=== PATIENT | male | born 1940 | race Caucasian/White ===

== ENCOUNTER 2017-04-23 08:51 | Day surgery (SDC) | payer MEDICARE ==
[2017-04-23 09:07] VITALS: BP 129/64; TEMP 98.4
[2017-04-23] MEDS ORDERED: OCTAGAM 10% 40 GM in Admixture Fee 1 EACH IVPB SCH (09:15)
[2017-04-23] MEDS ORDERED: Acetaminophen 500 MG TAB PO SCH (09:15)
[2017-04-23] MEDS ORDERED: PRIVIGEN IVPB SCH (09:15)
[2017-04-23] MEDS ORDERED: diphenhydrAMINE 50 MG/ML VIAL IVP SCH (09:15)
[2017-04-23] MEDS ORDERED: ADMIXTURE FEE IVPB SCH (09:15)
[2017-04-23] MEDS ORDERED: Sodium Chloride 0.9% 500 ML IVPB SCH (09:15)
--- OUTSIDE RECORDS SUMMARY | 2017-04-25 16:15 | XMS | Clinical Summary ---
:1940 Author Organization [facility] Address [address] [place] [address] Phone Care Team Providers Name Role Phone , Primary Care Provider Unavailable Allergies Not on File Current Medications Not on file Active Problems Not on file Social History Tobacco Use Types Packs/Day Years Used Date Never Assessed Sex Assigned at Date Recorded Not on file Last Filed Vital Signs Not on file Plan of Treatment Not on file Results Not on filefrom Last 3 Months
== END 2017-04-23 13:02 | disposition home or self-care (01) ==
LOC: ONC/OP 08:51
PROVIDERS: ATTEND Psychiatry & Neurology Neurology
DX: G61.81 Chronic inflammatory demyelinating polyneuritis (principal); I10 Essential (primary) hypertension; Z79.1 Long term (current) use of non-steroidal anti-inflammatories (NSAID); Z79.82 Long term (current) use of aspirin; Z79.899 Other long term (current) drug therapy; Z96.651 Presence of right artificial knee joint; Z98.890 Other specified postprocedural states; Z86.69 Personal history of other diseases of the nervous system and sense organs; Z85.038 Personal history of other malignant neoplasm of large intestine
CPT/HCPCS: 96365; 96366; 96375; J1200; J1459; J1568

== ENCOUNTER 2017-05-29 08:54 | Day surgery (SDC) | payer MEDICARE ==
[2017-05-29] MEDS ORDERED: Sodium Chloride 0.9% 500 ML IVPB SCH (09:15)
[2017-05-29] MEDS ORDERED: Acetaminophen 500 MG TAB PO SCH (09:15)
[2017-05-29] MEDS ORDERED: OCTAGAM 10% 40 GM in Admixture Fee 1 EACH IVPB SCH (09:15)
[2017-05-29 09:24] VITALS: TEMP 97.9
[2017-05-29] MEDS ORDERED: diphenhydrAMINE 50 MG/ML VIAL IVP SCH (09:30)
[2017-05-29 13:22] VITALS: BP 136/72
== END 2017-05-29 13:22 | disposition home or self-care (01) ==
LOC: ONC/OP 08:54
PROVIDERS: ATTEND Psychiatry & Neurology Neurology
DX: G61.81 Chronic inflammatory demyelinating polyneuritis (principal); G30.9 Alzheimer's disease, unspecified
CPT/HCPCS: 96361; 96365; 96366; 96375; J1200; J1568

== ENCOUNTER 2017-06-27 08:47 | Day surgery (SDC) | payer MEDICARE ==
[2017-06-27] MEDS ORDERED: Sodium Chloride 0.9% 500 ML IVPB SCH (09:15)
[2017-06-27 09:17] VITALS: BP 142/72; TEMP 97.9
[2017-06-27] MEDS ORDERED: Sodium Chloride 0.9% 20 ML ONE (09:26)
[2017-06-27] MEDS ORDERED: ADMIXTURE FEE CHEMO IVPB SCH (09:30)
[2017-06-27] MEDS ORDERED: diphenhydrAMINE 50 MG/ML VIAL IVP SCH (09:30)
[2017-06-27] MEDS ORDERED: OCTAGAM IVPB SCH (09:30)
[2017-06-27] MEDS ORDERED: Acetaminophen 500 MG TAB PO SCH (09:30)
== END 2017-06-27 13:43 | disposition home or self-care (01) ==
LOC: ONC/OP 08:47
PROVIDERS: ATTEND Psychiatry & Neurology Neurology
DX: G61.81 Chronic inflammatory demyelinating polyneuritis (principal); G30.9 Alzheimer's disease, unspecified; F02.80 Dementia in other diseases classified elsewhere, unspecified severity, without behavioral disturbance, psychotic disturbance, mood disturbance, and anxiety
CPT/HCPCS: 96361; 96365; 96366; 96375; A4216; J1200; J1568

== ENCOUNTER 2017-07-26 08:58 | Day surgery (SDC) | payer MEDICARE ==
[2017-07-26] MEDS ORDERED: Acetaminophen 500 MG TAB PO SCH (09:15)
[2017-07-26] MEDS ORDERED: OCTAGAM 10% 40 GM in Admixture Fee 1 EACH IVPB SCH (09:15)
[2017-07-26] MEDS ORDERED: diphenhydrAMINE 50 MG/ML VIAL IVP SCH (09:15)
[2017-07-26 11:50] VITALS: BP 120/71; TEMP 98.6
== END 2017-07-26 14:49 | disposition home or self-care (01) ==
LOC: ONC/OP 08:58
PROVIDERS: ATTEND Psychiatry & Neurology Neurology
DX: G61.81 Chronic inflammatory demyelinating polyneuritis (principal); Z79.1 Long term (current) use of non-steroidal anti-inflammatories (NSAID); Z79.82 Long term (current) use of aspirin; Z79.899 Other long term (current) drug therapy; Z98.890 Other specified postprocedural states; Z85.038 Personal history of other malignant neoplasm of large intestine; Z86.69 Personal history of other diseases of the nervous system and sense organs
CPT/HCPCS: 96365; 96366; 96375; J1200; J1568

== ENCOUNTER 2017-08-23 08:53 | Day surgery (SDC) | payer MEDICARE ==
[2017-08-23] MEDS ORDERED: OCTAGAM 10% 40 GM in Admixture Fee 1 EACH IVPB SCH (09:15)
[2017-08-23] MEDS ORDERED: diphenhydrAMINE 50 MG/ML VIAL IVP SCH (09:15)
[2017-08-23] MEDS ORDERED: Acetaminophen 500 MG TAB PO SCH (09:15)
[2017-08-23] MEDS ORDERED: Sodium Chloride 0.9% 500 ML IVPB SCH (09:15)
[2017-08-23] MEDS ORDERED: Sodium Chloride 0.9% 30 ML ONE (09:28)
[2017-08-23 10:23] VITALS: BP 153/75; TEMP 98.3
== END 2017-08-23 13:09 | disposition home or self-care (01) ==
LOC: ONC/OP 08:53
PROVIDERS: ATTEND Psychiatry & Neurology Neurology
DX: G61.81 Chronic inflammatory demyelinating polyneuritis (principal); Z79.1 Long term (current) use of non-steroidal anti-inflammatories (NSAID); Z79.82 Long term (current) use of aspirin; Z79.899 Other long term (current) drug therapy; Z98.890 Other specified postprocedural states; Z85.038 Personal history of other malignant neoplasm of large intestine; Z86.69 Personal history of other diseases of the nervous system and sense organs
CPT/HCPCS: 96365; 96366; 96375; A4216; J1200; J1568

== ENCOUNTER 2017-09-20 08:52 | Day surgery (SDC) | payer MEDICARE ==
[2017-09-20] MEDS ORDERED: Sodium Chloride 0.9% 30 ML ONE (09:11)
[2017-09-20] MEDS ORDERED: Acetaminophen 500 MG TAB PO SCH (09:15)
[2017-09-20] MEDS ORDERED: diphenhydrAMINE 50 MG/ML VIAL IVP SCH (09:15)
[2017-09-20] MEDS ORDERED: OCTAGAM 10% 40 GM in Admixture Fee 1 EACH IVPB SCH (09:15)
[2017-09-20] MEDS ORDERED: Sodium Chloride 0.9% 500 ML IVPB SCH (09:15)
[2017-09-20 12:05] VITALS: BP 136/63; TEMP 98.1
== END 2017-09-20 12:08 | disposition home or self-care (01) ==
LOC: ONC/OP 08:52
PROVIDERS: ATTEND Psychiatry & Neurology Neurology
DX: G61.81 Chronic inflammatory demyelinating polyneuritis (principal); Z79.1 Long term (current) use of non-steroidal anti-inflammatories (NSAID); Z79.82 Long term (current) use of aspirin; Z79.899 Other long term (current) drug therapy
CPT/HCPCS: 96365; 96366; 96375; A4216; J1200; J1568

== ENCOUNTER 2017-10-25 08:36 | Day surgery (SDC) | payer MEDICARE ==
[2017-10-25] MEDS ORDERED: diphenhydrAMINE 50 MG/ML VIAL IVP SCH (09:00)
[2017-10-25] MEDS ORDERED: Acetaminophen 500 MG TAB PO SCH (09:00)
[2017-10-25] MEDS ORDERED: Sodium Chloride 0.9% 500 ML IVPB SCH (09:00)
[2017-10-25] MEDS ORDERED: OCTAGAM 10% 40 GM in Admixture Fee 1 EACH IVPB SCH (09:15)
[2017-10-25] MEDS ORDERED: Sodium Chloride 0.9% 30 ML ONE (10:56)
[2017-10-25 12:36] VITALS: BP 132/59; TEMP 98.1
== END 2017-10-25 16:40 | disposition home or self-care (01) ==
LOC: ONC/OP 08:36
PROVIDERS: ATTEND Psychiatry & Neurology Neurology
DX: G61.81 Chronic inflammatory demyelinating polyneuritis (principal); Z79.82 Long term (current) use of aspirin; Z79.899 Other long term (current) drug therapy
CPT/HCPCS: 96365; 96366; 96375; A4216; J1200; J1568

== ENCOUNTER 2017-11-22 08:43 | Day surgery (SDC) | payer MEDICARE ==
[2017-11-22] MEDS ORDERED: Acetaminophen 500 MG TAB PO SCH (09:00)
[2017-11-22] MEDS ORDERED: Sodium Chloride 0.9% 500 ML IVPB SCH (09:00)
[2017-11-22] MEDS ORDERED: diphenhydrAMINE 50 MG/ML VIAL IVP SCH (09:00)
[2017-11-22 09:15] VITALS: BP 120/69; TEMP 98.4
[2017-11-22] MEDS ORDERED: Sodium Chloride 0.9% 30 ML ONE (09:15)
[2017-11-22] MEDS ORDERED: OCTAGAM 10% 40 GM in Admixture Fee 1 EACH IVPB SCH (09:30)
== END 2017-11-22 17:14 | disposition home or self-care (01) ==
LOC: ONC/OP 08:43
PROVIDERS: ATTEND Psychiatry & Neurology Neurology
DX: G61.81 Chronic inflammatory demyelinating polyneuritis (principal)
CPT/HCPCS: 96365; 96366; 96375; A4216; J1200; J1568

== ENCOUNTER 2017-12-20 08:42 | Day surgery (SDC) | payer MEDICARE ==
[2017-12-20] MEDS ORDERED: diphenhydrAMINE 50 MG/ML VIAL IVP SCH (09:15)
[2017-12-20] MEDS ORDERED: OCTAGAM IVPB SCH (09:15)
[2017-12-20] MEDS ORDERED: Acetaminophen 500 MG TAB PO SCH (09:15)
[2017-12-20] MEDS ORDERED: Sodium Chloride 0.9% 500 ML IVPB SCH (09:15)
[2017-12-20] MEDS ORDERED: ADMIXTURE FEE CHEMO IVPB SCH (09:15)
[2017-12-20 09:48] VITALS: BP 159/71; TEMP 99.1
== END 2017-12-20 12:25 | disposition home or self-care (01) ==
LOC: ONC/OP 08:42
PROVIDERS: ATTEND Psychiatry & Neurology Neurology
DX: G61.81 Chronic inflammatory demyelinating polyneuritis (principal)
CPT/HCPCS: 96365; 96366; 96375; J1200; J1568

== ENCOUNTER 2018-01-18 08:43 | Day surgery (SDC) | payer MEDICARE ==
[2018-01-18] MEDS ORDERED: Sodium Chloride 0.9% 20 ML ONE (09:12)
[2018-01-18] MEDS ORDERED: OCTAGAM IVPB SCH (09:15)
[2018-01-18] MEDS ORDERED: Acetaminophen 500 MG TAB PO SCH (09:15)
[2018-01-18] MEDS ORDERED: diphenhydrAMINE 50 MG/ML VIAL IVP SCH (09:15)
[2018-01-18] MEDS ORDERED: ADMIXTURE FEE IVPB SCH (09:15)
[2018-01-18] MEDS ORDERED: Sodium Chloride 0.9% 500 ML IVPB SCH (09:15)
[2018-01-18 11:45] VITALS: BP 135/68; TEMP 98.2
== END 2018-01-18 12:50 | disposition home or self-care (01) ==
LOC: ONC/OP 08:43
PROVIDERS: ATTEND Psychiatry & Neurology Neurology
DX: G61.81 Chronic inflammatory demyelinating polyneuritis (principal)
CPT/HCPCS: 96365; 96366; 96375; A4216; J1200; J1568

== ENCOUNTER 2018-02-14 08:38 | Day surgery (SDC) | payer MEDICARE ==
[2018-02-14] MEDS ORDERED: Sodium Chloride 0.9% 30 ML ONE (08:45)
[2018-02-14] MEDS ORDERED: Sodium Chloride 0.9% 500 ML IV SCH (08:45)
[2018-02-14] MEDS ORDERED: Acetaminophen 500 MG TAB PO SCH (09:00)
[2018-02-14] MEDS ORDERED: OCTAGAM IVPB SCH (09:00)
[2018-02-14] MEDS ORDERED: diphenhydrAMINE 50 MG/ML VIAL IVP SCH (09:00)
[2018-02-14] MEDS ORDERED: ADMIXTURE FEE IVPB SCH (09:00)
[2018-02-14] MEDS ORDERED: OCTAGAM 10% 40 GM in Admixture Fee 1 EACH IVPB SCH (09:15)
[2018-02-14] MEDS ORDERED: Sodium Chloride 0.9% 20 ML ONE (09:44)
[2018-02-14 12:04] VITALS: BP 118/63; TEMP 98.5
== END 2018-02-14 17:06 | disposition home or self-care (01) ==
LOC: ONC/OP 08:38
PROVIDERS: ATTEND Psychiatry & Neurology Neurology
DX: G61.81 Chronic inflammatory demyelinating polyneuritis (principal)
CPT/HCPCS: 96365; 96366; 96375; A4216; J1200; J1568

== ENCOUNTER 2018-03-14 08:43 | Day surgery (SDC) | payer MEDICARE ==
[2018-03-14] MEDS ORDERED: Sodium Chloride 0.9% 30 ML ONE (08:51)
[2018-03-14] MEDS ORDERED: Acetaminophen 500 MG TAB PO SCH (09:00)
[2018-03-14] MEDS ORDERED: OCTAGAM 10% 40 GM in Admixture Fee 1 EACH IVPB SCH (09:00)
[2018-03-14] MEDS ORDERED: diphenhydrAMINE 50 MG/ML VIAL IVP SCH (09:15)
[2018-03-14] MEDS ORDERED: Sodium Chloride 0.9% 500 ML IVPB SCH (09:15)
[2018-03-14 12:11] VITALS: BP 121/59; TEMP 98.1
== END 2018-03-14 13:19 | disposition home or self-care (01) ==
LOC: ONC/OP 08:43
PROVIDERS: ATTEND Psychiatry & Neurology Neurology
DX: G61.81 Chronic inflammatory demyelinating polyneuritis (principal); Z79.1 Long term (current) use of non-steroidal anti-inflammatories (NSAID); Z79.82 Long term (current) use of aspirin; Z79.899 Other long term (current) drug therapy
CPT/HCPCS: 96365; 96366; 96375; A4216; J1200; J1568

== ENCOUNTER 2018-04-10 08:43 | Day surgery (SDC) | payer MEDICARE ==
[2018-04-10] MEDS ORDERED: Sodium Chloride 0.9% 20 ML ONE (09:06)
[2018-04-10] MEDS ORDERED: Acetaminophen 500 MG TAB PO SCH (09:15)
[2018-04-10] MEDS ORDERED: OCTAGAM 10% 40 GM in Admixture Fee 1 EACH IVPB SCH (09:15)
[2018-04-10] MEDS ORDERED: Sodium Chloride 0.9% 500 ML IVPB SCH (09:15)
[2018-04-10] MEDS ORDERED: diphenhydrAMINE 25 MG CAP PO SCH (09:30)
[2018-04-10 09:45] VITALS: BP 119/63; TEMP 98.4
== END 2018-04-10 12:38 | disposition home or self-care (01) ==
LOC: ONC/OP 08:43
PROVIDERS: ATTEND Psychiatry & Neurology Neurology
DX: G61.81 Chronic inflammatory demyelinating polyneuritis (principal)
CPT/HCPCS: 96365; 96366; A4216; J1568

== ENCOUNTER 2018-05-15 08:45 | Day surgery (SDC) | payer MEDICARE ==
[2018-05-15] MEDS ORDERED: Acetaminophen 500 MG TAB PO SCH (09:15)
[2018-05-15] MEDS ORDERED: OCTAGAM 10% 40 GM in Admixture Fee 1 EACH IVPB SCH (09:15)
[2018-05-15] MEDS ORDERED: diphenhydrAMINE 50 MG/ML VIAL IVP SCH (09:15)
[2018-05-15] MEDS ORDERED: Sodium Chloride 0.9% 500 ML IVPB SCH (09:15)
[2018-05-15] MEDS ORDERED: Sodium Chloride 0.9% 30 ML ONE (09:27)
[2018-05-15 10:26] VITALS: BP 121/64; TEMP 98.4
== END 2018-05-15 11:52 | disposition home or self-care (01) ==
LOC: ONC/OP 08:45
PROVIDERS: ATTEND Psychiatry & Neurology Neurology
DX: G61.81 Chronic inflammatory demyelinating polyneuritis (principal)
CPT/HCPCS: 96365; 96366; 96375; J1200; J1568

== ENCOUNTER 2018-06-13 08:40 | Day surgery (SDC) | payer MEDICARE ==
[2018-06-13] MEDS: diphenhydrAMINE 25 MG CAP PO SCH (10:10)
[2018-06-13] MEDS: Sodium Chloride 0.9% 20 ML ONE (10:10)
[2018-06-13] MEDS: Acetaminophen 500 MG TAB PO SCH (10:10)
[2018-06-13] MEDS: Privigen 40 GM in Admixture Fee 1 EACH IVPB SCH (10:11)
== END 2018-06-13 12:16 | disposition home or self-care (01) ==
LOC: ONC/OP 08:40
PROVIDERS: ATTEND Psychiatry & Neurology Neurology
DX: G61.81 Chronic inflammatory demyelinating polyneuritis (principal); Z79.1 Long term (current) use of non-steroidal anti-inflammatories (NSAID); Z79.82 Long term (current) use of aspirin; Z79.899 Other long term (current) drug therapy
CPT/HCPCS: 96365; 96366; J1459

== ENCOUNTER 2018-07-12 09:03 | Day surgery (SDC) | payer MEDICARE ==
[2018-07-12] MEDS ORDERED: Sodium Chloride 0.9% 20 ML ONE (09:08)
[2018-07-12] MEDS ORDERED: diphenhydrAMINE 50 MG/ML VIAL IVP SCH (09:30)
[2018-07-12] MEDS ORDERED: ADMIXTURE FEE CHEMO IVPB SCH (09:30)
[2018-07-12] MEDS ORDERED: Sodium Chloride 0.9% 500 ML IV SCH (09:30)
[2018-07-12] MEDS ORDERED: diphenhydrAMINE 25 MG CAP PO SCH (09:30)
[2018-07-12] MEDS ORDERED: OCTAGAM IVPB SCH (09:30)
[2018-07-12] MEDS ORDERED: Acetaminophen 500 MG TAB PO SCH (09:30)
[2018-07-12 09:37] VITALS: BP 156/70; TEMP 98.8
== END 2018-07-12 12:40 | disposition home or self-care (01) ==
LOC: ONC/OP 09:03
PROVIDERS: ATTEND Psychiatry & Neurology Neurology
DX: G61.81 Chronic inflammatory demyelinating polyneuritis (principal); Z79.1 Long term (current) use of non-steroidal anti-inflammatories (NSAID); Z79.82 Long term (current) use of aspirin; Z79.899 Other long term (current) drug therapy
CPT/HCPCS: 96365; 96366; J1568

== ENCOUNTER 2018-08-09 09:09 | Day surgery (SDC) | payer MEDICARE ==
[~2018-08-09 09:09] MED LIST: Acetaminophen 500 MG TAB PO SCH; OCTAGAM 10% 40 GM in Admixture Fee 1 EACH IVPB SCH; Sodium Chloride 0.9% 500 ML IV SCH; diphenhydrAMINE 25 MG CAP PO SCH; diphenhydrAMINE 50 MG/ML VIAL IVP SCH
[2018-08-09] MEDS ORDERED: Sodium Chloride 0.9% 20 ML ONE (10:37)
== END 2018-08-09 13:42 | disposition home or self-care (01) ==
LOC: ONC/OP 09:09
PROVIDERS: ATTEND Psychiatry & Neurology Neurology
DX: G61.81 Chronic inflammatory demyelinating polyneuritis (principal); G61.0 Guillain-Barre syndrome; Z79.1 Long term (current) use of non-steroidal anti-inflammatories (NSAID); Z79.82 Long term (current) use of aspirin; Z79.899 Other long term (current) drug therapy; Z98.890 Other specified postprocedural states
CPT/HCPCS: 96365; 96366; 96375; J1200; J1568

== ENCOUNTER 2018-09-06 08:55 | Day surgery (SDC) | payer MEDICARE ==
[~2018-09-06 08:55] MED LIST changes: -diphenhydrAMINE 25 MG CAP PO SCH
[2018-09-06] MEDS ORDERED: Sodium Chloride 0.9% 0 ML ONE (09:02)
[2018-09-06] MEDS ORDERED: Sodium Chloride 0.9% 30 ML ONE (09:06)
[2018-09-06 09:26] VITALS: BP 116/62; TEMP 99
== END 2018-09-06 10:58 | disposition home or self-care (01) ==
LOC: ONC/OP 08:55
PROVIDERS: ATTEND Psychiatry & Neurology Neurology
DX: G61.81 Chronic inflammatory demyelinating polyneuritis (principal)
CPT/HCPCS: 96365; 96366; 96375; J1200; J1568; J7050

== ENCOUNTER 2018-10-04 08:49 | Day surgery (SDC) | payer MEDICARE ==
[2018-10-04] MEDS ORDERED: Sodium Chloride 0.9% 20 ML ONE (09:13)
[2018-10-04 09:50] VITALS: BP 123/61; TEMP 98.3
== END 2018-10-04 11:33 | disposition home or self-care (01) ==
LOC: ONC/OP 08:49
PROVIDERS: ATTEND Psychiatry & Neurology Neurology
DX: G61.81 Chronic inflammatory demyelinating polyneuritis (principal); Z79.1 Long term (current) use of non-steroidal anti-inflammatories (NSAID); Z79.82 Long term (current) use of aspirin; Z79.899 Other long term (current) drug therapy
CPT/HCPCS: 96361; 96365; 96366; J1200; J1568

== ENCOUNTER 2018-11-01 08:43 | Day surgery (SDC) | payer MEDICARE ==
[2018-11-01] MEDS ORDERED: Sodium Chloride 0.9% 500 ML IVPB SCH (09:00)
[2018-11-01] MEDS ORDERED: OCTAGAM 10% 40 GM in Premix Bag 1 BAG IVPB SCH ×2 (09:00→09:30)
[2018-11-01] MEDS ORDERED: diphenhydrAMINE 50 MG/ML VIAL IVP SCH (09:00)
[2018-11-01] MEDS ORDERED: Acetaminophen 500 MG TAB PO SCH (09:00)
[2018-11-01] MEDS ORDERED: Sodium Chloride 0.9% 20 ML ONE (09:12)
[2018-11-01] MEDS ORDERED: diphenhydrAMINE 50 MG/ML VIAL ONE ×2 (09:49→09:59)
[2018-11-01 10:08] VITALS: BP 142/64; TEMP 98.8
== END 2018-11-01 15:08 | disposition home or self-care (01) ==
LOC: ONC/OP 08:43
PROVIDERS: ATTEND Psychiatry & Neurology Neurology
DX: G61.81 Chronic inflammatory demyelinating polyneuritis (principal)
CPT/HCPCS: 96365; 96366; 96375; J1200; J1568

== ENCOUNTER 2018-11-29 08:49 | Day surgery (SDC) | payer MEDICARE ==
[~2018-11-29 08:49] MED LIST changes: -OCTAGAM 10% 40 GM in Admixture Fee 1 EACH IVPB SCH; +OCTAGAM 10% 40 GM in Premix Bag 1 BAG IVPB SCH; -Sodium Chloride 0.9% 500 ML IV SCH; +Sodium Chloride 0.9% 500 ML IVPB SCH
[2018-11-29] MEDS ORDERED: Sodium Chloride 0.9% 20 ML ONE (09:44)
[2018-11-29 09:45] VITALS: BP 98/55; TEMP 98.5
== END 2018-11-29 12:12 | disposition home or self-care (01) ==
LOC: ONC/OP 08:49
PROVIDERS: ATTEND Psychiatry & Neurology Neurology
DX: G61.81 Chronic inflammatory demyelinating polyneuritis (principal); Z79.82 Long term (current) use of aspirin; Z79.1 Long term (current) use of non-steroidal anti-inflammatories (NSAID); Z79.899 Other long term (current) drug therapy
CPT/HCPCS: 96365; 96366; 96375; J1200; J1568

== ENCOUNTER 2018-12-27 08:39 | Day surgery (SDC) | payer MEDICARE ==
[2018-12-27] MEDS ORDERED: Sodium Chloride 0.9% 20 ML ONE (09:01)
[2018-12-27 09:05] VITALS: BP 119/56; TEMP 97.7
[2018-12-27] MEDS ORDERED: OCTAGAM 10% 40 GM in Admixture Fee 1 EACH IVPB SCH (09:15)
[2018-12-27] MEDS ORDERED: Acetaminophen 500 MG TAB PO SCH (10:00)
[2018-12-27] MEDS ORDERED: diphenhydrAMINE 50 MG/ML VIAL IVP SCH (10:00)
[2018-12-27] MEDS ORDERED: Sodium Chloride 0.9% 500 ML IV SCH (10:00)
== END 2018-12-27 12:00 | disposition home or self-care (01) ==
LOC: ONC/OP 08:39
PROVIDERS: ATTEND Psychiatry & Neurology Neurology
DX: G61.81 Chronic inflammatory demyelinating polyneuritis (principal)
CPT/HCPCS: 96365; 96366; 96375; J1200; J1568

== ENCOUNTER 2019-01-24 08:43 | Day surgery (SDC) | payer MEDICARE ==
[~2019-01-24 08:43] MED LIST changes: +OCTAGAM 10% 40 GM in Admixture Fee 1 EACH IVPB SCH; -OCTAGAM 10% 40 GM in Premix Bag 1 BAG IVPB SCH
[2019-01-24] MEDS ORDERED: ADMIXTURE FEE IVPB SCH (09:00)
[2019-01-24] MEDS ORDERED: OCTAGAM IVPB SCH (09:00)
[2019-01-24 13:13] VITALS: BP 140/63
== END 2019-01-24 13:13 | disposition home or self-care (01) ==
LOC: ONC/OP 08:43
PROVIDERS: ATTEND Psychiatry & Neurology Neurology
DX: G61.81 Chronic inflammatory demyelinating polyneuritis (principal)
CPT/HCPCS: 96365; 96366; 96375; J1200; J1568

== ENCOUNTER 2019-03-21 08:44 | Day surgery (SDC) | payer MEDICARE ==
[~2019-03-21 08:44] MED LIST changes: +ADMIXTURE FEE IVPB SCH; +OCTAGAM IVPB SCH
[2019-03-21 09:08] VITALS: BP 133/65; TEMP 98.6
== END 2019-03-21 11:14 | disposition home or self-care (01) ==
LOC: ONC/OP 08:44
PROVIDERS: ATTEND Psychiatry & Neurology Neurology
DX: G61.81 Chronic inflammatory demyelinating polyneuritis (principal)
CPT/HCPCS: 96365; 96366; 96375; J1200; J1568

== ENCOUNTER 2019-04-18 08:46 | Day surgery (SDC) | payer MEDICARE ==
[~2019-04-18 08:46] MED LIST changes: -ADMIXTURE FEE IVPB SCH; -OCTAGAM IVPB SCH
[2019-04-18 09:59] VITALS: TEMP 98.6
[2019-04-18 13:03] VITALS: BP 122/79
== END 2019-04-18 13:05 | disposition home or self-care (01) ==
LOC: ONC/OP 08:46
PROVIDERS: ATTEND Psychiatry & Neurology Neurology
DX: G61.81 Chronic inflammatory demyelinating polyneuritis (principal)
CPT/HCPCS: 96365; 96366; 96375; J1200; J1568

== ENCOUNTER 2019-05-16 09:04 | Day surgery (SDC) | payer MEDICARE ==
[2019-05-16 11:02] VITALS: TEMP 98.1
[2019-05-16 11:39] VITALS: BP 127/59
== END 2019-05-16 11:39 | disposition home or self-care (01) ==
LOC: ONC/OP 09:04
PROVIDERS: ATTEND Psychiatry & Neurology Neurology
DX: G61.81 Chronic inflammatory demyelinating polyneuritis (principal)
CPT/HCPCS: 96365; 96366; 96375; J1200; J1568

== ENCOUNTER 2019-06-13 08:45 | Day surgery (SDC) | payer MEDICARE ==
[~2019-06-13 08:45] MED LIST changes: -OCTAGAM 10% 40 GM in Admixture Fee 1 EACH IVPB SCH; +OCTAGAM IVPB SCH; +diphenhydrAMINE 25 MG CAP PO SCH; -diphenhydrAMINE 50 MG/ML VIAL IVP SCH
[2019-06-13] MEDS ORDERED: Sodium Chloride 0.9% 20 ML ONE (09:10)
[2019-06-13] MEDS ORDERED: diphenhydrAMINE 50 MG/ML VIAL IVP PRN (09:16)
[2019-06-13 10:28] VITALS: BP 104/62; TEMP 98.6
== END 2019-06-13 14:01 | disposition home or self-care (01) ==
LOC: ONC/OP 08:45
PROVIDERS: ATTEND Psychiatry & Neurology Neurology
DX: G61.81 Chronic inflammatory demyelinating polyneuritis (principal)
CPT/HCPCS: 96361; 96365; 96366; 96375; J1200; J1568; Q0163

== ENCOUNTER 2019-07-11 08:47 | Day surgery (SDC) | payer MEDICARE ==
[~2019-07-11 08:47] MED LIST changes: -diphenhydrAMINE 25 MG CAP PO SCH; +diphenhydrAMINE 50 MG/ML VIAL IVP SCH
[2019-07-11] MEDS ORDERED: Sodium Chloride 0.9% 20 ML ONE (09:02)
[2019-07-11 09:37] VITALS: BP 126/60; TEMP 98.6
== END 2019-07-11 11:53 | disposition home or self-care (01) ==
LOC: ONC/OP 08:47
PROVIDERS: ATTEND Psychiatry & Neurology Neurology
DX: G61.81 Chronic inflammatory demyelinating polyneuritis (principal)
CPT/HCPCS: 96361; 96365; 96375; J1200; J1568

== ENCOUNTER 2019-08-08 09:18 | Day surgery (SDC) | payer MEDICARE ==
[2019-08-08] MEDS ORDERED: Sodium Chloride 0.9% 20 ML ONE (09:21)
[2019-08-08 11:38] VITALS: BP 146/70; TEMP 98.3
== END 2019-08-08 11:38 | disposition home or self-care (01) ==
LOC: ONC/OP 09:18
PROVIDERS: ATTEND Psychiatry & Neurology Neurology
DX: G61.81 Chronic inflammatory demyelinating polyneuritis (principal)
CPT/HCPCS: 96365; 96375; J1200; J1568

== ENCOUNTER → 2019-09-05 | Day surgery (SDC) | payer MEDICARE ==
[~2019-09-05] MED LIST changes: +ADMIXTURE FEE IVPB SCH; +OCTAGAM 10% 40 GM in Admixture Fee 1 EACH IVPB SCH; +Sodium Chloride 0.9% 500 ML IV SCH; -Sodium Chloride 0.9% 500 ML IVPB SCH
[2019-09-05 17:00] VITALS: BP 116/57; TEMP 99
== END ==
LOC: ONC/OP 09:34
PROVIDERS: ATTEND Psychiatry & Neurology Neurology
DX: G61.81 Chronic inflammatory demyelinating polyneuritis (principal)
CPT/HCPCS: 96365; 96366; 96375; J1200; J1568

== ENCOUNTER 2019-10-02 09:23 | Day surgery (SDC) | payer MEDICARE ==
[~2019-10-02 09:23] MED LIST changes: -Sodium Chloride 0.9% 500 ML IV SCH; +Sodium Chloride 0.9% 500 ML IVPB SCH
[2019-10-02] MEDS ORDERED: Sodium Chloride 0.9% 20 ML ONE (09:49)
[2019-10-02 10:44] VITALS: BP 118/64; TEMP 98.9
== END 2019-10-02 13:04 | disposition home or self-care (01) ==
LOC: ONC/OP 09:23
PROVIDERS: ATTEND Psychiatry & Neurology Neurology
DX: G61.81 Chronic inflammatory demyelinating polyneuritis (principal)
CPT/HCPCS: 96361; 96365; 96366; 96375; J1200; J1568

== ENCOUNTER 2019-10-30 09:07 | Day surgery (SDC) | payer MEDICARE ==
[~2019-10-30 09:07] MED LIST changes: -OCTAGAM 10% 40 GM in Admixture Fee 1 EACH IVPB SCH
[2019-10-30] MEDS ORDERED: Sodium Chloride 0.9% 20 ML ONE (09:12)
[2019-10-30 09:33] VITALS: BP 131/67; TEMP 98.5
== END 2019-10-30 12:40 | disposition home or self-care (01) ==
LOC: ONC/OP 09:07
PROVIDERS: ATTEND Psychiatry & Neurology Neurology
DX: G61.81 Chronic inflammatory demyelinating polyneuritis (principal)
CPT/HCPCS: 96361; 96365; 96366; 96375; J1200; J1568

== ENCOUNTER 2019-11-27 09:40 | Day surgery (SDC) | payer MEDICARE ==
[~2019-11-27 09:40] MED LIST changes: -Sodium Chloride 0.9% 500 ML IVPB SCH
[2019-11-27] MEDS ORDERED: Sodium Chloride 0.9% 20 ML ONE (09:41)
[2019-11-27 10:02] VITALS: BP 149/67; TEMP 99
== END 2019-11-27 12:17 | disposition home or self-care (01) ==
LOC: ONC/OP 09:40
PROVIDERS: ATTEND Psychiatry & Neurology Neurology
DX: G61.81 Chronic inflammatory demyelinating polyneuritis (principal); G61.0 Guillain-Barre syndrome; Z79.899 Other long term (current) drug therapy
CPT/HCPCS: 96361; 96365; 96375; J1200; J1568

== ENCOUNTER 2019-12-25 09:18 | Day surgery (SDC) | payer MEDICARE ==
[~2019-12-25 09:18] MED LIST changes: +Sodium Chloride 0.9% 500 ML IV SCH
[2019-12-25] MEDS ORDERED: Sodium Chloride 0.9% 20 ML ONE (09:39)
[2019-12-25 10:19] VITALS: BP 112/65; TEMP 97.8
== END 2019-12-25 11:53 | disposition home or self-care (01) ==
LOC: ONC/OP 09:18
PROVIDERS: ATTEND Psychiatry & Neurology Neurology
DX: G61.81 Chronic inflammatory demyelinating polyneuritis (principal)
CPT/HCPCS: 96361; 96365; 96366; 96375; J1200; J1568

== ENCOUNTER 2020-01-22 09:16 | Day surgery (SDC) | payer MEDICARE ==
[~2020-01-22 09:16] MED LIST changes: -ADMIXTURE FEE IVPB SCH; +OCTAGAM 10% 40 GM in Admixture Fee 1 EACH IVPB SCH; -OCTAGAM IVPB SCH
[2020-01-22] MEDS ORDERED: Sodium Chloride 0.9% 20 ML ONE (09:29)
[2020-01-22 10:17] VITALS: BP 119/61; TEMP 98.7
== END 2020-01-22 16:02 | disposition home or self-care (01) ==
LOC: ONC/OP 09:16
PROVIDERS: ATTEND Psychiatry & Neurology Neurology
DX: G61.81 Chronic inflammatory demyelinating polyneuritis (principal)
CPT/HCPCS: 96361; 96365; 96366; 96375; J1200; J1568

== ENCOUNTER 2020-04-15 09:52 | Day surgery (SDC) | payer MEDICARE ==
[2020-04-15 10:37] VITALS: BP 125/60; TEMP 98.5
== END 2020-04-15 12:26 | disposition home or self-care (01) ==
LOC: ONC/OP 09:52
PROVIDERS: ATTEND Psychiatry & Neurology Neurology
DX: G61.81 Chronic inflammatory demyelinating polyneuritis (principal)
CPT/HCPCS: 96361; 96365; 96366; 96375; J1200; J1568

== ENCOUNTER 2020-05-13 09:37 | Day surgery (SDC) | payer MEDICARE ==
[2020-05-13] MEDS ORDERED: Sodium Chloride 0.9% 20 ML ONE (09:39)
== END 2020-05-13 12:28 | disposition home or self-care (01) ==
LOC: ONC/OP 09:37
PROVIDERS: ATTEND Psychiatry & Neurology Neurology
DX: G61.81 Chronic inflammatory demyelinating polyneuritis (principal)
CPT/HCPCS: 96365; 96366; 96375; J1200; J1568

== ENCOUNTER 2020-06-10 09:13 | Day surgery (SDC) | payer MEDICARE ==
[2020-06-10] MEDS ORDERED: Sodium Chloride 0.9% 20 ML ONE (09:15)
[2020-06-10 09:32] VITALS: BP 154/70; TEMP 98.1
== END 2020-06-10 12:09 | disposition home or self-care (01) ==
LOC: ONC/OP 09:13
PROVIDERS: ATTEND Psychiatry & Neurology Neurology
DX: G61.81 Chronic inflammatory demyelinating polyneuritis (principal)
CPT/HCPCS: 96361; 96365; 96366; 96375; J1200; J1568

== ENCOUNTER 2020-07-16 09:22 | Day surgery (SDC) | payer MEDICARE ==
[2020-07-16] MEDS ORDERED: Sodium Chloride 0.9% 20 ML ONE (09:33)
== END 2020-07-16 12:47 | disposition home or self-care (01) ==
LOC: ONC/OP 09:22
PROVIDERS: ATTEND Psychiatry & Neurology Neurology
DX: G61.81 Chronic inflammatory demyelinating polyneuritis (principal)
CPT/HCPCS: 96361; 96365; 96366; 96375; J1200; J1568

== ENCOUNTER 2020-08-13 08:57 | Day surgery (SDC) | payer MEDICARE ==
[2020-08-13 09:20] VITALS: BP 159/87; TEMP 98.5
[2020-08-13] MEDS ORDERED: Sodium Chloride 0.9% 20 ML ONE (09:28)
== END 2020-08-13 12:36 | disposition home or self-care (01) ==
LOC: ONC/OP 08:57
PROVIDERS: ATTEND Psychiatry & Neurology Neurology
DX: G61.81 Chronic inflammatory demyelinating polyneuritis (principal)
CPT/HCPCS: 96361; 96365; 96366; J1200; J1568

== ENCOUNTER 2020-09-08 09:13 | Day surgery (SDC) | payer MEDICARE ==
[~2020-09-08 09:13] MED LIST changes: +Acetaminophen 500 MG TAB PO PRN; -Acetaminophen 500 MG TAB PO SCH; -Sodium Chloride 0.9% 500 ML IV SCH; +diphenhydrAMINE 50 MG/ML VIAL IVP PRN; -diphenhydrAMINE 50 MG/ML VIAL IVP SCH
[2020-09-08] MEDS ORDERED: Sodium Chloride 0.9% 20 ML ONE (09:17)
== END 2020-09-08 11:39 | disposition home or self-care (01) ==
LOC: ONC/OP 09:13
PROVIDERS: ATTEND Psychiatry & Neurology Neurology
DX: G61.81 Chronic inflammatory demyelinating polyneuritis (principal)
CPT/HCPCS: 96361; 96365; 96366; 96375; J1200; J1568

== ENCOUNTER 2020-10-08 09:19 | Day surgery (SDC) | payer MEDICARE ==
[~2020-10-08 09:19] MED LIST changes: +Sodium Chloride 0.9% 500 ML IV SCH
[2020-10-08 09:31] VITALS: BP 122/68; TEMP 98.2
[2020-10-08] MEDS ORDERED: Sodium Chloride 0.9% 20 ML ONE (09:33)
== END 2020-10-08 12:35 | disposition home or self-care (01) ==
LOC: ONC/OP 09:19
PROVIDERS: ATTEND Psychiatry & Neurology Neurology
DX: G61.81 Chronic inflammatory demyelinating polyneuritis (principal)
CPT/HCPCS: 96361; 96365; 96366; 96375; J1200; J1568

== ENCOUNTER 2020-11-05 09:06 | Day surgery (SDC) | payer MEDICARE ==
[2020-11-05] MEDS ORDERED: Sodium Chloride 0.9% 20 ML ONE (09:21)
[2020-11-05 10:22] VITALS: BP 124/75; TEMP 98.2
== END 2020-11-05 11:47 | disposition home or self-care (01) ==
LOC: ONC/OP 09:06
PROVIDERS: ATTEND Psychiatry & Neurology Neurology
DX: G61.81 Chronic inflammatory demyelinating polyneuritis (principal)
CPT/HCPCS: 96365; 96366; 96375; J1200; J1568

== ENCOUNTER 2020-12-03 09:04 | Day surgery (SDC) | payer MEDICARE ==
[2020-12-03 12:57] VITALS: BP 137/79; TEMP 98.1
== END 2020-12-03 13:07 | disposition home or self-care (01) ==
LOC: ONC/OP 09:04
PROVIDERS: ATTEND Psychiatry & Neurology Neurology
DX: G61.81 Chronic inflammatory demyelinating polyneuritis (principal)
CPT/HCPCS: 96361; 96365; 96366; 96375; J1200; J1568